=== PATIENT | female | born 1955 | race Caucasian/White ===

== ENCOUNTER 2024-02-06 21:23 | Emergency (ER) | payer MEDICARE ==
[~2024-02-06] VITALS: Ht 160 cm; Wt 47.6 kg
[2024-02-06] MEDS ORDERED: DEXTROSE 50%-WATER 50 ML DISP.SYRIN ONE (22:44)
[2024-02-06] MEDS: DEXTROSE 50%-WATER 50 ML DISP.SYRIN IVP ONE (22:55)
[2024-02-06 23:08] LABS: CALCIUM, SERUM 9.1 mg/dL (8.5-10.1); CARBON DIOXIDE 29 mmol/L (21-32); CHLORIDE 103 mmol/L (98-107); CREATININE 0.5 mg/dL (0.6-1.3); POTASSIUM 3.6 mmol/L (3.5-5.1); SODIUM SERUM 140 mmol/L (136-145); UREA NITROGEN, BLOOD 21 mg/dL (7-18)
[2024-02-06 23:10] LABS: BASOPHILS # (AUTO) 0.1 K/uL (0.0-0.2); BASOPHILS % (AUTO) 0.7 % (0.0-2.0); EOSINOPHILS % (AUTO) 0.2 % (0.0-6.0); HEMATOCRIT 39 % (33-45); LYMPHOCYTES # (AUTO) 1.6 K/uL (0.8-4.8); LYMPHOCYTES % (AUTO) 16.4 % (20.0-44.0); MEAN CORPUSCULAR HEMOGLOBIN 34 PG (26.0-33.0); MEAN CORPUSCULAR HGB CONC 34 g/dl (31.0-36.0); MEAN CORPUSCULAR VOLUME 100 fL (82-100); MONOCYTES # (AUTO) 0.4 K/uL (0.1-1.30); MONOCYTES % (AUTO) 4.3 % (2.0-12.0); NEUTROPHILS # (AUTO) 7.6 K/uL (1.8-8.9); NEUTROPHILS % (AUTO) 78.4 % (43.0-81.0); PLATELET COUNT (AUTO) 252 K/uL (150-450); RED BLOOD CELL COUNT(AUTO) 3.87 MIL/uL (4.0-5.2); RED CELL DISTRIBUTION WIDTH 14.8 % (11.5-15.0); WHITE BLOOD COUNT (AUTO) 9.7 K/uL (4.3-11.0)
[2024-02-06 23:13] LABS: INR 0.99 (0.91-1.10); PARTIAL THROMBOPLASTIN TIME 30.8 SEC (24.3-34.3); PROTHROMBIN TIME 10.5 SECS (9.2-11.1)
[2024-02-06 23:15] LABS: ALANINE AMINOTRANSFERASE 160 U/L (12-78); ALBUMIN 3.5 g/dL (3.4-5.0); ALKALINE PHOSPHATASE 67 U/L (46-116); ASPARTATE AMINOTRANSFERASE 132 U/L (15-37); BILIRUBIN,DIRECT 0.2 mg/dL (0.0-0.2); BILIRUBIN,TOTAL 0.6 mg/dL (0.2-1.0); LIPASE 52 U/L (16-77); TOTAL PROTEIN, SERUM 6.7 g/dL (6.4-8.2)
[2024-02-06 23:16] LABS: GLUCOSE 42 mg/dL (74-106)
[2024-02-06 23:53] LABS: APPEARANCE,URINE CLEAR (CLEAR); BILIRUBIN,URINE NEGATIVE (NEGATIVE); BLOOD, URINE NEGATIVE Ery/uL (NEGATIVE); COLOR,URINE YELLOW (YELLOW); KETONES,URINE NEGATIVE (NEGATIVE); LEUKOCYTE ESTERASE ,URINE NEGATIVE (NEGATIVE); NITRITE, URINE NEGATIVE (NEGATIVE); PROTEIN,URINE NEGATIVE (NEGATIVE); UGLUCOSE 1+ mg/dL (NEGATIVE); UROBILINOGEN,URINE 0.2 EU/dL (0.2)
[2024-02-06 23:57] LABS: ADD URINE CULTURE NO; BACTERIA,URINE Rare /HPF (None Seen); RBC,URINE 0-2 /HPF (0-2); SQUAMOUS EPITHELIAL CELL,UR Few /HPF (None Seen); WBC,URINE 0-2 /HPF (0-3)
[2024-02-07 05:52] VITALS: BP 125/66; TEMP 98.9; O2SAT 99
== END 2024-02-07 05:53 | disposition home or self-care (01) ==
LOC: ER 21:31
DX: E16.2 Hypoglycemia, unspecified (principal)
CPT/HCPCS: 36415; 71045-TC; 80048-TC; 80076-TC; 81001; 82962-TC; 83690-TC; 84484-TC; 85025-TC; 85730-TC

== ENCOUNTER 2024-02-10 17:27 | Inpatient (IN) | payer MEDICARE ==
[~2024-02-10] VITALS: Ht 152.4 cm; Wt 44.0 kg
[2024-02-10 18:30] LABS: BASOPHILS # (AUTO) 0.1 K/uL (0.0-0.2); EOSINOPHILS % (AUTO) 0.2 % (0.0-6.0); HEMATOCRIT 34 % (33-45); HEMOGLOBIN 11.8 g/dL (11.5-14.8); LYMPHOCYTES # (AUTO) 1.7 K/uL (0.8-4.8); LYMPHOCYTES % (AUTO) 24.1 % (20.0-44.0); MEAN CORPUSCULAR HEMOGLOBIN 34 PG (26.0-33.0); MEAN CORPUSCULAR HGB CONC 34 g/dl (31.0-36.0); MEAN CORPUSCULAR VOLUME 98 fL (82-100); MONOCYTES # (AUTO) 0.6 K/uL (0.1-1.30); MONOCYTES % (AUTO) 9.4 % (2.0-12.0); NEUTROPHILS # (AUTO) 4.5 K/uL (1.8-8.9); NEUTROPHILS % (AUTO) 65.3 % (43.0-81.0); PLATELET COUNT (AUTO) 282 K/uL (150-450); RED CELL DISTRIBUTION WIDTH 14.4 % (11.5-15.0); WHITE BLOOD COUNT (AUTO) 6.9 K/uL (4.3-11.0)
[2024-02-10 18:37] LABS: CALCIUM, SERUM 8.6 mg/dL (8.5-10.1); CARBON DIOXIDE 32 mmol/L (21-32); CHLORIDE 103 mmol/L (98-107); CREATININE 0.5 mg/dL (0.6-1.3); GLUCOSE 71 mg/dL (74-106); POTASSIUM 3.8 mmol/L (3.5-5.1); SODIUM SERUM 140 mmol/L (136-145); UREA NITROGEN, BLOOD 22 mg/dL (7-18)
[2024-02-10 18:49] LABS: ALANINE AMINOTRANSFERASE 173 U/L (12-78); ALBUMIN 3.2 g/dL (3.4-5.0); ALKALINE PHOSPHATASE 62 U/L (46-116); ASPARTATE AMINOTRANSFERASE 100 U/L (15-37); BILIRUBIN,DIRECT 0.2 mg/dL (0.0-0.2); BILIRUBIN,TOTAL 0.7 mg/dL (0.2-1.0); TOTAL PROTEIN, SERUM 6.2 g/dL (6.4-8.2)
[2024-02-10] MEDS ORDERED: DEXTROSE 50%-WATER 50 ML DISP.SYRIN ONE (19:09)
[2024-02-10] MEDS: DEXTROSE 50%-WATER 50 ML DISP.SYRIN IVP ONE (19:10)
[2024-02-10 20:06] LABS: APPEARANCE,URINE CLEAR (CLEAR); BILIRUBIN,URINE NEGATIVE (NEGATIVE); BLOOD, URINE NEGATIVE Ery/uL (NEGATIVE); COLOR,URINE YELLOW (YELLOW); KETONES,URINE NEGATIVE (NEGATIVE); LEUKOCYTE ESTERASE ,URINE NEGATIVE (NEGATIVE); NITRITE, URINE NEGATIVE (NEGATIVE); PROTEIN,URINE NEGATIVE (NEGATIVE); UGLUCOSE NEGATIVE (NEGATIVE); UROBILINOGEN,URINE 0.2 EU/dL (0.2)
[2024-02-10] MEDS ORDERED: MAGNESIUM HYDROXIDE 30 ML UDC PO PRN (20:30)
[2024-02-10] MEDS ORDERED: IV D5/0.45 NACL 1,000 ML IV PRN (20:30)
[2024-02-10] MEDS ORDERED: Z GUARD REMEDY 4 OZ OINT TP PRN (20:30)
[2024-02-10] MEDS ORDERED: MAG HYDROX/AL HYDROX/SIMETH 30 ML UDC PO PRN (20:30)
[2024-02-10] MEDS ORDERED: ZOLPIDEM TARTRATE 5 MG TABLET PO PRN (20:30)
[2024-02-10] MEDS ORDERED: ACETAMINOPHEN 325 MG TABLET PO PRN (20:30)
[2024-02-10] MEDS ORDERED: ONDANSETRON HCL/PF 4 MG/2 ML VIAL IVP PRN (20:30)
[2024-02-10] MEDS ORDERED: DEXTROSE 50%-WATER 50 ML DISP.SYRIN IV PRN (20:30)
[2024-02-10] MEDS: BLOOD SUGAR DIAGNOSTIC 1 EACH STRIP IN SCH (21:24)
[2024-02-10 22:00] VITALS: O2SAT 96
[2024-02-11 02:38] VITALS: BP 106/67; TEMP 98.6
[2024-02-11] MEDS: BLOOD SUGAR DIAGNOSTIC 1 EACH STRIP IN ONE (02:54)
[2024-02-11] MEDS ORDERED: MAGNESIUM HYDROXIDE 30 ML UDC PO PRN (03:00)
[2024-02-11] MEDS ORDERED: MAG HYDROX/AL HYDROX/SIMETH 30 ML UDC PO PRN (03:00)
[2024-02-11] MEDS ORDERED: ACETAMINOPHEN 325 MG TABLET PO PRN (03:00)
[2024-02-11 08:00] VITALS: BP 111/74; TEMP 97.8; O2SAT 97
[2024-02-11] MEDS: INSULIN REGULAR, HUMAN 100 UNIT/ML 3 ML VIAL SQ PRN ×2 (11:00→17:23)
[2024-02-11] MEDS: BLOOD SUGAR DIAGNOSTIC 1 EACH STRIP IN SCH (12:42)
[2024-02-11 15:49] LABS: BASOPHILS # (AUTO) 0.1 K/uL (0.0-0.2); BASOPHILS % (AUTO) 1.2 % (0.0-2.0); EOSINOPHILS # (AUTO) 0.1 K/uL (0.0-0.7); HEMATOCRIT 35 % (33-45); HEMOGLOBIN 11.8 g/dL (11.5-14.8); LYMPHOCYTES # (AUTO) 1.9 K/uL (0.8-4.8); LYMPHOCYTES % (AUTO) 34.2 % (20.0-44.0); MEAN CORPUSCULAR HEMOGLOBIN 34 PG (26.0-33.0); MEAN CORPUSCULAR HGB CONC 34 g/dl (31.0-36.0); MEAN CORPUSCULAR VOLUME 98 fL (82-100); MONOCYTES # (AUTO) 0.6 K/uL (0.1-1.30); MONOCYTES % (AUTO) 10.7 % (2.0-12.0); NEUTROPHILS # (AUTO) 2.9 K/uL (1.8-8.9); NEUTROPHILS % (AUTO) 52.9 % (43.0-81.0); PLATELET COUNT (AUTO) 277 K/uL (150-450); RED BLOOD CELL COUNT(AUTO) 3.53 MIL/uL (4.0-5.2); RED CELL DISTRIBUTION WIDTH 14.9 % (11.5-15.0); WHITE BLOOD COUNT (AUTO) 5.5 K/uL (4.3-11.0)
[2024-02-11 16:00] VITALS: BP 109/84; TEMP 97.9; O2SAT 97
[2024-02-11 16:12] LABS: CALCIUM, SERUM 8.5 mg/dL (8.5-10.1); CREATININE 0.6 mg/dL (0.6-1.3); MAGNESIUM 2.1 mg/dL (1.8-2.4); PHOSPHORUS 2.8 mg/dL (2.5-4.9); POTASSIUM 4.1 mmol/L (3.5-5.1)
[2024-02-11 20:00] VITALS: BP 119/83; TEMP 98.1; O2SAT 100
[2024-02-11] MEDS: FLUVOXAMINE MALEATE 50 MG TABLET PO SCH (21:33)
[2024-02-11] MEDS: QUETIAPINE FUMARATE 25 MG TABLET PO SCH (21:33)
[2024-02-12 08:00] VITALS: BP 109/66; TEMP 97.9; O2SAT 99
[2024-02-12 08:25] LABS: CREATININE 0.6 mg/dL (0.6-1.3)
[2024-02-12 08:32] LABS: ALBUMIN 3.2 g/dL (3.4-5.0); BILIRUBIN,TOTAL 0.7 mg/dL (0.2-1.0); CALCIUM, SERUM 8.4 mg/dL (8.5-10.1); CREATININE 0.6 mg/dL (0.6-1.3); POTASSIUM 4.4 mmol/L (3.5-5.1); TOTAL PROTEIN, SERUM 6.1 g/dL (6.4-8.2)
[2024-02-12] MEDS: DIVALPROEX SODIUM 125 MG CAP.SPRINK PO SCH (08:38)
[2024-02-12 09:41] LABS: CHOLESTEROL 130 mg/dL (<200); HDL CHOLESTEROL 77 mg/dL (40-60); LDL 40 mg/dL (0-99); TRIGLYCERIDES 58 mg/dL (30-150)
[2024-02-12 16:00] VITALS: BP 116/73; TEMP 98.6; O2SAT 97
[2024-02-12 20:00] VITALS: BP 137/71; TEMP 98.3; O2SAT 97
[2024-02-13 08:00] VITALS: BP 142/90; TEMP 98.5; O2SAT 100
[2024-02-13 08:03] LABS: CALCIUM, SERUM 8.5 mg/dL (8.5-10.1); CREATININE 0.6 mg/dL (0.6-1.3); POTASSIUM 4.2 mmol/L (3.5-5.1)
[2024-02-13 08:37] VITALS: BP 114/68
[2024-02-13] MEDS: INSULIN REGULAR, HUMAN 100 UNIT/ML 3 ML VIAL SQ PRN (12:07)
[2024-02-13 16:00] VITALS: BP 116/82; TEMP 97.9; O2SAT 96
[2024-02-13 20:00] VITALS: BP 141/84; TEMP 98.1; O2SAT 98
[2024-02-13] MEDS: *INSULIN REGULAR(HUMULIN R)HUM 100 UNIT/ML VIAL SQ PRN (22:09)
[2024-02-14 08:00] VITALS: BP 119/75; TEMP 97.7; O2SAT 96
[2024-02-14] MEDS: GLUCERNA SHAKE 237 ML CAN PO SCH (08:26)
[2024-02-14 16:00] VITALS: BP 129/81; TEMP 97.8; O2SAT 99
[2024-02-14 20:30] VITALS: BP 125/79; TEMP 99.1; O2SAT 96
[2024-02-14] MEDS: INSULIN GLARGINE, 100 UNIT/ML CARTRIDGE SQ SCH (22:06)
[2024-02-15 08:00] VITALS: BP 117/80; TEMP 97.9; O2SAT 99
[2024-02-15 16:00] VITALS: BP 127/80; TEMP 98.2; O2SAT 98
[2024-02-15 20:47] VITALS: BP 123/82; TEMP 98.1; O2SAT 96
[2024-02-15] MEDS: QUETIAPINE FUMARATE 25 MG TABLET PO SCH (21:59)
[2024-02-16 08:00] VITALS: BP 133/83; TEMP 98.2; O2SAT 98
[2024-02-16 16:00] VITALS: BP 116/82; TEMP 97.9; O2SAT 100
[2024-02-16 21:00] VITALS: BP 124/79; TEMP 98.6; O2SAT 97
[2024-02-17 08:00] VITALS: BP 111/72; TEMP 98.7; O2SAT 98
[2024-02-17 16:00] VITALS: BP 124/77; TEMP 98.1; O2SAT 97
[2024-02-17 21:16] VITALS: BP 124/84; TEMP 98; O2SAT 96
[2024-02-18 08:00] VITALS: BP 107/69; TEMP 98.7; O2SAT 99
== END 2024-02-18 13:27 | DRG 885 ==
LOC: ER 17:36 → TELE1 20:25 → GPS 02-11 01:16
PROVIDERS: ADMIT Psychiatry & Neurology Psychiatry; ATTEND Nurse Practitioner Acute Care
DX: F32.2 Major depressive disorder, single episode, severe without psychotic features (principal); E44.0 Moderate protein-calorie malnutrition; Z68.1 Body mass index [BMI] 19.9 or less, adult; E11.649 Type 2 diabetes mellitus with hypoglycemia without coma; Z20.822 Contact with and (suspected) exposure to COVID-19; Z91.199 Patient's noncompliance with other medical treatment and regimen due to unspecified reason; Z73.6 Limitation of activities due to disability; S00.83XA Contusion of other part of head, initial encounter; V89.2XXA Person injured in unspecified motor-vehicle accident, traffic, initial encounter; Y93.9 Activity, unspecified; Y92.89 Other specified places as the place of occurrence of the external cause; S02.2XXA Fracture of nasal bones, initial encounter for closed fracture; F42.9 Obsessive-compulsive disorder, unspecified; F39 Unspecified mood [affective] disorder; Z79.899 Other long term (current) drug therapy
CPT/HCPCS: 36415; 70486-TC; 71045-TC; 80048-TC; 80053-TC; 80061-TC; 80076-TC; 82565-TC; 82962-TC; 83735-TC; 84100-TC; 84484-TC; 85025-TC; 87081-TC; A4223; G0378; J1815; J7050

== ENCOUNTER 2024-04-03 01:46 | Emergency (ER) | payer MEDICARE ==
[~2024-04-03] VITALS: Ht 157.5 cm; Wt 66.2 kg
[2024-04-03 01:49] VITALS: TEMP 97.9
[2024-04-03 03:53] VITALS: BP 128/77; O2SAT 96
== END 2024-04-03 03:53 | disposition home or self-care (01) ==
LOC: ER 01:56
DX: S09.90XA Unspecified injury of head, initial encounter (principal); E11.9 Type 2 diabetes mellitus without complications; Z60.2 Problems related to living alone; X58.XXXA Exposure to other specified factors, initial encounter; Y93.89 Activity, other specified; Y92.89 Other specified places as the place of occurrence of the external cause; Y99.8 Other external cause status

== ENCOUNTER 2024-04-15 04:49 | Inpatient (IN) | payer MEDICARE ==
[~2024-04-15] VITALS: Ht 152.4 cm; Wt 36.7 kg
[2024-04-15] MEDS ORDERED: TDAP [DIPH/PERTUSSIS/TET] 0.5 ML VIAL IM ONE (05:25)
[2024-04-15] MEDS: TDAP [DIPH/PERTUSSIS/TET] 0.5 ML VIAL IM ONE (05:32)
[2024-04-15] MEDS ORDERED: OLANZAPINE 10 MG VIAL IM ONE (06:41)
[2024-04-15 06:45] LABS: BASOPHILS # (AUTO) 0.1 K/uL (0.0-0.2); BASOPHILS % (AUTO) 1.1 % (0.0-2.0); EOSINOPHILS % (AUTO) 0.5 % (0.0-6.0); HEMATOCRIT 35 % (33-45); LYMPHOCYTES # (AUTO) 1.3 K/uL (0.8-4.8); LYMPHOCYTES % (AUTO) 25.9 % (20.0-44.0); MEAN CORPUSCULAR HEMOGLOBIN 33 PG (26.0-33.0); MEAN CORPUSCULAR HGB CONC 34 g/dl (31.0-36.0); MEAN CORPUSCULAR VOLUME 97 fL (82-100); MONOCYTES # (AUTO) 0.4 K/uL (0.1-1.30); MONOCYTES % (AUTO) 6.8 % (2.0-12.0); NEUTROPHILS # (AUTO) 3.4 K/uL (1.8-8.9); NEUTROPHILS % (AUTO) 65.7 % (43.0-81.0); PLATELET COUNT (AUTO) 324 K/uL (150-450); RED BLOOD CELL COUNT(AUTO) 3.65 MIL/uL (4.0-5.2); RED CELL DISTRIBUTION WIDTH 16.7 % (11.5-15.0); WHITE BLOOD COUNT (AUTO) 5.1 K/uL (4.3-11.0)
[2024-04-15 06:57] LABS: CALCIUM, SERUM 8.2 mg/dL (8.5-10.1); CHLORIDE 102 mmol/L (98-107); CREATININE 0.6 mg/dL (0.6-1.3); GLUCOSE 355 mg/dL (74-106); POTASSIUM 4.3 mmol/L (3.5-5.1); SODIUM SERUM 136 mmol/L (136-145); UREA NITROGEN, BLOOD 23 mg/dL (7-18)
[2024-04-15] MEDS: OLANZAPINE 10 MG VIAL IM ONE (06:59)
[2024-04-15 07:07] LABS: CARBON DIOXIDE 28 mmol/L (21-32)
[2024-04-15 07:41] LABS: APPEARANCE,URINE CLEAR (CLEAR); BILIRUBIN,URINE NEGATIVE (NEGATIVE); BLOOD, URINE NEGATIVE Ery/uL (NEGATIVE); COLOR,URINE YELLOW (YELLOW); KETONES,URINE 1+ mg/dL (NEGATIVE); LEUKOCYTE ESTERASE ,URINE NEGATIVE (NEGATIVE); NITRITE, URINE NEGATIVE (NEGATIVE); PROTEIN,URINE NEGATIVE (NEGATIVE); UGLUCOSE 3+ mg/dL (NEGATIVE); UROBILINOGEN,URINE 0.2 EU/dL (0.2)
[2024-04-15 07:47] LABS: ADD URINE CULTURE NO; BACTERIA,URINE None seen /HPF (None Seen); SQUAMOUS EPITHELIAL CELL,UR Few /HPF (None Seen); WBC,URINE 0-2 /HPF (0-3)
[2024-04-15 07:59] LABS: THYROID STIMULATING HORMONE 1.045 uIU/mL (0.358-3.74)
[2024-04-15 08:05] LABS: AMPHETAMINE, URINE NEGATIVE (NEGATIVE); BARBITURATE, URINE NEGATIVE (NEGATIVE); BENZODIAZEPINE, URINE NEGATIVE (NEGATIVE); CANNABINOID, URINE NEGATIVE (NEGATIVE); COCCAINE, URINE NEGATIVE (NEGATIVE); OPIATE, URINE NEGATIVE (NEGATIVE); PHENCYCLIDINE SCREEN,URINE NEGATIVE (NEGATIVE)
[2024-04-15 08:08] LABS: ACETAMINOPHEN < 10 ug/ml (10-30); ALANINE AMINOTRANSFERASE 344 U/L (12-78); ALBUMIN 2.8 g/dL (3.4-5.0); ALKALINE PHOSPHATASE 80 U/L (46-116); ASPARTATE AMINOTRANSFERASE 49 U/L (15-37); BILIRUBIN,DIRECT 0.2 mg/dL (0.0-0.2); BILIRUBIN,TOTAL 0.7 mg/dL (0.2-1.0); TOTAL PROTEIN, SERUM 5.5 g/dL (6.4-8.2)
[2024-04-15 08:11] LABS: SALICYLATE < 0.2 mg/dL (2.8-20.0)
[2024-04-15 08:12] LABS: ALCOHOL, BLOOD < 3 mg/dL (0-10)
[2024-04-15] MEDS: IV NS 0.9% 1,000 ML BAG IV ONE (08:16)
[2024-04-15] MEDS ORDERED: DOCU100T2 PO (11:03)
[2024-04-15] MEDS ORDERED: FLUV50TA3 PO (11:03)
[2024-04-15] MEDS ORDERED: BISA10SU11 RC (11:03)
[2024-04-15] MEDS ORDERED: ZOLP5TAB8 PO (11:03)
[2024-04-15] MEDS ORDERED: MAGN400O6 PO (11:03)
[2024-04-15] MEDS ORDERED: DIVA125C5 PO (11:03)
[2024-04-15] MEDS ORDERED: MAG30ORA PO (11:03)
[2024-04-15] MEDS ORDERED: ACET-2030 PO (11:03)
[2024-04-15] MEDS ORDERED: QUET50TA PO (11:03)
[2024-04-15] MEDS ORDERED: ACET-868 PO (11:03)
[2024-04-15] MEDS ORDERED: NA P133E RC (11:03)
[2024-04-15] MEDS ORDERED: *INS REG3 SQ (11:03)
[2024-04-15] MEDS ORDERED: CRAN425C6 PO (11:03)
[2024-04-15] MEDS ORDERED: INSULIN REGULAR, HUMAN 100 UNIT/ML 10 ML VIAL ONE (13:21)
[2024-04-15] MEDS: INSULIN REGULAR, HUMAN 100 UNIT/ML 10 ML VIAL SQ ONE (13:25)
[2024-04-15 14:30] VITALS: BP 133/82; TEMP 98.1; O2SAT 98
[2024-04-15] MEDS ORDERED: MAG HYDROX/AL HYDROX/SIMETH 30 ML UDC PO PRN ×2 (14:30→16:30)
[2024-04-15] MEDS ORDERED: ACETAMINOPHEN 325 MG TABLET PO PRN (14:30)
[2024-04-15] MEDS ORDERED: TEMAZEPAM 7.5 MG CAPSULE PO PRN (14:30)
[2024-04-15] MEDS ORDERED: MAGNESIUM HYDROXIDE 30 ML UDC PO PRN ×2 (14:30→16:30)
[2024-04-15] MEDS: BLOOD SUGAR DIAGNOSTIC 1 EACH STRIP IN ONE (15:25)
[2024-04-15] MEDS ORDERED: DEXTROSE 50%-WATER 50 ML DISP.SYRIN IV PRN (15:30)
[2024-04-15 16:00] VITALS: BP 133/82; TEMP 98; O2SAT 96
[2024-04-15] MEDS ORDERED: BISACODYL SUPP (10 MG) 10 MG/SUPP.RECT SUPP.RECT RC PRN (16:30)
[2024-04-15] MEDS ORDERED: NA PHOS,M-B/NA PHOS,DI-BA 1 EA ENEMA RC PRN (16:30)
[2024-04-15] MEDS ORDERED: ACETAMINOPHEN ES 500 MG TABLET PO PRN (16:30)
[2024-04-15] MEDS: BLOOD SUGAR DIAGNOSTIC 1 EACH STRIP VI SCH (17:11)
[2024-04-15 20:00] VITALS: BP 121/77; TEMP 98.2; O2SAT 96
[2024-04-15] MEDS: *INSULIN REGULAR(HUMULIN R)HUM 100 UNIT/ML VIAL SQ PRN (22:09)
[2024-04-16] MEDS: INSULIN REGULAR, HUMAN 100 UNIT/ML 3 ML VIAL SQ PRN (07:02)
[2024-04-16 07:23] LABS: CREATININE 0.6 mg/dL (0.6-1.3)
[2024-04-16 07:29] LABS: CHOLESTEROL 241 mg/dL (<200); HDL CHOLESTEROL 130 mg/dL (40-60); LDL 81 mg/dL (0-99); TRIGLYCERIDES 88 mg/dL (30-150)
[2024-04-16 07:30] LABS: BILIRUBIN,TOTAL 0.9 mg/dL (0.2-1.0); CREATININE 0.6 mg/dL (0.6-1.3); POTASSIUM 3.6 mmol/L (3.5-5.1); TOTAL PROTEIN, SERUM 5.8 g/dL (6.4-8.2)
[2024-04-16] MEDS: DOCUSATE SODIUM 100 MG CAPSULE PO SCH (08:23)
[2024-04-16] MEDS: DIVALPROEX SODIUM 125 MG TABLET.DR PO SCH (08:32)
[2024-04-16] MEDS ORDERED: DIVALPROEX SODIUM 125 MG CAP.SPRINK PO SCH (09:00)
[2024-04-16 16:00] VITALS: BP 127/83; TEMP 97.9; O2SAT 100
[2024-04-16 20:00] VITALS: BP 111/70; TEMP 97.9; O2SAT 100
[2024-04-16] MEDS: FLUVOXAMINE MALEATE 50 MG TABLET PO SCH (21:32)
[2024-04-16] MEDS: QUETIAPINE FUMARATE 25 MG TABLET PO SCH (21:32)
[2024-04-17 09:47] VITALS: BP 99/38; TEMP 99; O2SAT 96
[2024-04-17] MEDS: GLUCERNA SHAKE 237 ML CAN PO SCH (17:08)
[2024-04-17 17:21] VITALS: BP 111/76; TEMP 96.7; O2SAT 99
[2024-04-17 20:00] VITALS: BP 114/82; TEMP 98; O2SAT 99
[2024-04-17 20:59] LABS: ALBUMIN 2.8 g/dL (3.4-5.0); BILIRUBIN,DIRECT 0.2 mg/dL (0.0-0.2); BILIRUBIN,TOTAL 0.5 mg/dL (0.2-1.0); TOTAL PROTEIN, SERUM 5.6 g/dL (6.4-8.2)
[2024-04-18 08:00] VITALS: BP 114/67; TEMP 98.6; O2SAT 97
[2024-04-18 16:00] VITALS: BP 135/77; TEMP 97.9; O2SAT 98
[2024-04-18 20:51] VITALS: BP 133/73; TEMP 98.2; O2SAT 98
[2024-04-19 08:00] VITALS: BP 124/87; TEMP 98.6; O2SAT 98
[2024-04-19 16:00] VITALS: BP 129/85; TEMP 97.9; O2SAT 98
[2024-04-19 20:48] VITALS: BP 127/76; TEMP 97.9; O2SAT 96
[2024-04-20 08:00] VITALS: BP 128/79; TEMP 97.9; O2SAT 99
[2024-04-20] MEDS: clonazePAM 0.5 MG TABLET PO PRN (08:12)
[2024-04-20 16:10] VITALS: BP 97/63; TEMP 97.8; O2SAT 97
[2024-04-20 20:49] VITALS: BP 114/83; TEMP 98.4; O2SAT 99
[2024-04-21 08:00] VITALS: BP 119/76; TEMP 98.7; O2SAT 97
[2024-04-21 16:00] VITALS: BP 120/78; TEMP 98.3; O2SAT 99
[2024-04-21 20:00] VITALS: BP 111/77; TEMP 97.5; O2SAT 94
[2024-04-21 22:13] LABS: CALCIUM, SERUM 8.5 mg/dL (8.5-10.1); POTASSIUM 4.9 mmol/L (3.5-5.1)
[2024-04-21] MEDS: INSULIN GLARGINE, 100 UNIT/ML CARTRIDGE SQ SCH (22:49)
[2024-04-22 08:00] VITALS: BP 119/78; TEMP 97.6; O2SAT 97
[2024-04-22 16:00] VITALS: BP 117/71; TEMP 98; O2SAT 100
[2024-04-22 20:00] VITALS: BP 136/90; TEMP 98.1; O2SAT 96
[2024-04-22] MEDS: QUETIAPINE FUMARATE 25 MG TABLET PO SCH (21:07)
[2024-04-22] MEDS: FLUVOXAMINE MALEATE 50 MG TABLET PO SCH (21:08)
[2024-04-23 08:00] VITALS: BP 129/81; TEMP 98.6; O2SAT 98
[2024-04-23 16:00] VITALS: BP 128/89; TEMP 98.2; O2SAT 100
[2024-04-23 20:00] VITALS: BP 121/89; TEMP 98.2; O2SAT 98
[2024-04-24 08:00] VITALS: BP 105/78; TEMP 98; O2SAT 95
[2024-04-24 16:00] VITALS: BP 134/87; TEMP 98; O2SAT 99
[2024-04-24 20:00] VITALS: BP 105/64; TEMP 98.3; O2SAT 98
[2024-04-24] MEDS: INSULIN GLARGINE, 100 UNIT/ML CARTRIDGE SQ SCH (22:09)
[2024-04-25 08:00] VITALS: BP 142/86; TEMP 97.9; O2SAT 96
[2024-04-25 16:00] VITALS: BP 125/96; TEMP 97.9; O2SAT 95
[2024-04-25 20:00] VITALS: BP 124/81; TEMP 98.4; O2SAT 96
[2024-04-25 20:32] VITALS: BP 124/81; TEMP 98.4; O2SAT 96
[2024-04-25] MEDS: QUETIAPINE FUMARATE 25 MG TABLET PO SCH (21:36)
[2024-04-25] MEDS: FLUVOXAMINE MALEATE 50 MG TABLET PO SCH (21:36)
[2024-04-26 07:25] LABS: CALCIUM, SERUM 8.7 mg/dL (8.5-10.1); CREATININE 0.4 mg/dL (0.6-1.3); POTASSIUM 4.1 mmol/L (3.5-5.1)
[2024-04-26 08:00] VITALS: BP 130/82; TEMP 97.9; O2SAT 99
[2024-04-26 16:00] VITALS: BP 109/73; TEMP 98.6; O2SAT 97
[2024-04-26 20:20] VITALS: BP 115/78; TEMP 98.6; O2SAT 96
[2024-04-27 08:00] VITALS: BP 116/75; TEMP 97.6; O2SAT 100
[2024-04-27 16:07] VITALS: BP 117/73; TEMP 97.8; O2SAT 96
[2024-04-27 20:20] VITALS: BP 105/69; TEMP 98.8; O2SAT 96
[2024-04-28 08:00] VITALS: BP 139/89; TEMP 98.6; O2SAT 99
[2024-04-28 16:00] VITALS: BP 144/98; TEMP 99; O2SAT 96
[2024-04-28 20:24] VITALS: BP 139/84; TEMP 97.9; O2SAT 97
[2024-04-29 08:00] VITALS: BP 135/76; TEMP 98.2; O2SAT 93
[2024-04-29 15:09] LABS: BASOPHILS # (AUTO) 0.1 K/uL (0.0-0.2); BASOPHILS % (AUTO) 1.1 % (0.0-2.0); EOSINOPHILS % (AUTO) 0.3 % (0.0-6.0); HEMATOCRIT 37 % (33-45); HEMOGLOBIN 12.4 g/dL (11.5-14.8); LYMPHOCYTES # (AUTO) 1.9 K/uL (0.8-4.8); LYMPHOCYTES % (AUTO) 22.2 % (20.0-44.0); MEAN CORPUSCULAR HEMOGLOBIN 33 PG (26.0-33.0); MEAN CORPUSCULAR HGB CONC 34 g/dl (31.0-36.0); MEAN CORPUSCULAR VOLUME 98 fL (82-100); MONOCYTES # (AUTO) 0.7 K/uL (0.1-1.30); MONOCYTES % (AUTO) 8.1 % (2.0-12.0); NEUTROPHILS # (AUTO) 5.7 K/uL (1.8-8.9); NEUTROPHILS % (AUTO) 68.3 % (43.0-81.0); PLATELET COUNT (AUTO) 287 K/uL (150-450); RED BLOOD CELL COUNT(AUTO) 3.74 MIL/uL (4.0-5.2); RED CELL DISTRIBUTION WIDTH 17.3 % (11.5-15.0); WHITE BLOOD COUNT (AUTO) 8.4 K/uL (4.3-11.0)
[2024-04-29 15:23] LABS: CALCIUM, SERUM 9.5 mg/dL (8.5-10.1); CREATININE 0.6 mg/dL (0.6-1.3); POTASSIUM 4.6 mmol/L (3.5-5.1)
[2024-04-29 15:51] LABS: ALBUMIN 3.1 g/dL (3.4-5.0); BILIRUBIN,DIRECT 0.2 mg/dL (0.0-0.2); BILIRUBIN,TOTAL 0.5 mg/dL (0.2-1.0); TOTAL PROTEIN, SERUM 6.2 g/dL (6.4-8.2)
[2024-04-29 16:32] VITALS: BP 129/76; TEMP 98.2; O2SAT 98
[2024-04-29 20:00] VITALS: BP 125/79; TEMP 98.3; O2SAT 98
[2024-04-30 08:00] VITALS: BP 118/87; TEMP 97.8; O2SAT 96
== END 2024-04-30 13:30 | DRG 885 ==
LOC: ER 05:00 → GPS 13:34
PROVIDERS: ADMIT Psychiatry & Neurology Psychiatry; ATTEND Internal Medicine
DX: F33.2 Major depressive disorder, recurrent severe without psychotic features (principal); E43 Unspecified severe protein-calorie malnutrition; E11.65 Type 2 diabetes mellitus with hyperglycemia; F23 Brief psychotic disorder; R64 Cachexia; Z68.1 Body mass index [BMI] 19.9 or less, adult; F29 Unspecified psychosis not due to a substance or known physiological condition; S00.81XA Abrasion of other part of head, initial encounter; S00.12XA Contusion of left eyelid and periocular area, initial encounter; W19.XXXA Unspecified fall, initial encounter; Y92.129 Unspecified place in nursing home as the place of occurrence of the external cause; F41.9 Anxiety disorder, unspecified; Z20.822 Contact with and (suspected) exposure to COVID-19; F42.9 Obsessive-compulsive disorder, unspecified; Z79.4 Long term (current) use of insulin; Z73.6 Limitation of activities due to disability; M62.81 Muscle weakness (generalized); Y93.9 Activity, unspecified; Z79.899 Other long term (current) drug therapy
CPT/HCPCS: 36415; 70450-TC; 70486-TC; 71045-TC; 72125-TC; 80048-TC; 80053-TC; 80061-TC; 80076-TC; 81001; 82565-TC; 82962-TC; 84443-TC; 84484-TC; 85025-TC; 87081-TC; 90715; 97112-TC; 97116-TC; 97530-TC; G0480; J1815; J3490; J7030

== ENCOUNTER 2024-06-07 01:14 | Emergency (ER) | payer MEDICARE ==
[~2024-06-07] VITALS: Ht 172.7 cm; Wt 59.0 kg
[~2024-06-07 01:14] MED LIST: *INS REG3 SQ; ACET-2030 PO; ACET-868 PO; BISA10SU11 RC; CRAN425C6 PO; DIVA125C5 PO; DOCU100T2 PO; FLUV50TA3 PO; MAG30ORA PO; MAGN400O6 PO; NA P133E RC; QUET50TA PO; ZOLP5TAB8 PO
[2024-06-07 02:48] LABS: BASOPHILS # (AUTO) 0.1 K/uL (0.0-0.2); BASOPHILS % (AUTO) 1.1 % (0.0-2.0); EOSINOPHILS # (AUTO) 0.1 K/uL (0.0-0.7); HEMATOCRIT 33 % (33-45); HEMOGLOBIN 11.2 g/dL (11.5-14.8); LYMPHOCYTES % (AUTO) 30.1 % (20.0-44.0); MEAN CORPUSCULAR HEMOGLOBIN 34 PG (26.0-33.0); MEAN CORPUSCULAR HGB CONC 34 g/dl (31.0-36.0); MEAN CORPUSCULAR VOLUME 99 fL (82-100); MONOCYTES # (AUTO) 0.8 K/uL (0.1-1.30); MONOCYTES % (AUTO) 8.4 % (2.0-12.0); NEUTROPHILS # (AUTO) 5.8 K/uL (1.8-8.9); NEUTROPHILS % (AUTO) 59.4 % (43.0-81.0); PLATELET COUNT (AUTO) 328 K/uL (150-450); RED BLOOD CELL COUNT(AUTO) 3.32 MIL/uL (4.0-5.2); RED CELL DISTRIBUTION WIDTH 15.6 % (11.5-15.0); WHITE BLOOD COUNT (AUTO) 9.8 K/uL (4.3-11.0)
[2024-06-07 02:57] LABS: CALCIUM, SERUM 8.4 mg/dL (8.5-10.1); CARBON DIOXIDE 25 mmol/L (21-32); CHLORIDE 100 mmol/L (98-107); CREATININE 0.6 mg/dL (0.6-1.3); POTASSIUM 4.5 mmol/L (3.5-5.1); SODIUM SERUM 133 mmol/L (136-145); UREA NITROGEN, BLOOD 23 mg/dL (7-18)
[2024-06-07 02:59] LABS: GLUCOSE 403 mg/dL (74-106)
[2024-06-07 03:03] LABS: ALANINE AMINOTRANSFERASE 218 U/L (12-78); ALBUMIN 2.4 g/dL (3.4-5.0); ALKALINE PHOSPHATASE 155 U/L (46-116); ASPARTATE AMINOTRANSFERASE 105 U/L (15-37); BILIRUBIN,DIRECT 0.2 mg/dL (0.0-0.2); BILIRUBIN,TOTAL 0.5 mg/dL (0.2-1.0); TOTAL PROTEIN, SERUM 5.9 g/dL (6.4-8.2)
[2024-06-07] MEDS ORDERED: INSULIN REGULAR, HUMAN 100 UNIT/ML 10 ML VIAL ONE (03:58)
[2024-06-07] MEDS: INSULIN REGULAR, HUMAN 100 UNIT/ML 10 ML VIAL SQ ONE (04:03)
[2024-06-07 05:21] VITALS: BP 135/81; TEMP 98.2; O2SAT 99
== END 2024-06-07 05:21 ==
LOC: ER 01:16
DX: Z13.9 Encounter for screening, unspecified (principal); E11.9 Type 2 diabetes mellitus without complications; Z79.4 Long term (current) use of insulin; Z79.899 Other long term (current) drug therapy; W18.39XA Other fall on same level, initial encounter; Y93.89 Activity, other specified; Y92.89 Other specified places as the place of occurrence of the external cause; Y99.8 Other external cause status
CPT/HCPCS: 36415; 71045-TC; 73502; 80048-TC; 80076-TC; 82962-TC; 84484-TC; 85025-TC; J1815